=== PATIENT | male | born 1970 | race Two or more races ===

== ENCOUNTER 2022-02-28 05:18 | Emergency (ER) | payer BC ==
[~2022-02-28] VITALS: Ht 162.6 cm; Wt 70.3 kg
== END 2022-02-28 06:19 | disposition home or self-care (01) ==
LOC: ER 05:18
DX: S01.111A Laceration without foreign body of right eyelid and periocular area, initial encounter (principal); X58.XXXA Exposure to other specified factors, initial encounter; Y93.9 Activity, unspecified; Y92.9 Unspecified place or not applicable; Y99.9 Unspecified external cause status